=== PATIENT | male | born 1995 | race Caucasian/White ===

== ENCOUNTER 2017-02-06 14:17 | Emergency (ER) | payer BC ==
[~2017-02-06] VITALS: Ht 180.3 cm; Wt 118.0 kg
[2017-02-06 14:20] VITALS: TEMP 36.5; Ht 180.3 cm; Wt 118.0 kg
[2017-02-06] MEDS ORDERED: XYLOCAINE 1%/SOD BICARB 20 ML VIAL INFIL ONE (14:42)
[2017-02-06] MEDS ORDERED: BUPIVACAINE 0.5 % 5 MG/1 ML MPF 30ML VIAL INFIL STA (15:01)
--- NOTE | 2017-02-06 15:21 | EMERGENCY ROOM VISIT NOTE ---
ED Visit Note First contact with patient: 14:47 Chief Complaint: "Cut finger and half". History of Present Illness: This patient is a 21-year-old male who presents to the Emergency Department via private vehicle for evaluation of their left index finger laceration. Patient sustained the laceration while attending to install a brake controller or in his truck. This occurred at his residence 1 hour prior to arrival. They report a large amount of bleeding initially. They deny any numbness or tingling into the distal extremity. They report no decreased range of motion of the affected digit. Patient rates his current discomfort as a 7/10. Patient's Tetanus status is not currently up-to-date, but he indicates that he is going to [facility] later today to update this. Medications: None Allergies: None reported PMH: No pertinent past medical history SHx: Patient lives locally with family. ROS: All pertinent positive and negative review of systems are appropriately documented in the History of Present Illness. Physical Exam: VITAL SIGNS - Vital signs and nursing notes were reviewed. GENERAL -21-year-old male appearing his stated age who is in no acute distress. Communicates well with provider and answers questions appropriately. SKIN - There is a 2.5 cm long laceration noted on the dorsal aspect of the right second digit. The edges gape apart with traction. No foreign bodies appreciated. Upon further examination there are no deep structures including vessel, tendon, or bony structures appreciated. There is moderate active bleeding noted. MUSCULOSKELETAL - Laceration as described above. +5/5 strength appreciated of the affected digit. Full range of motion of the affected digit. NEUROLOGIC -he is neurovascularly intact in the affected digit. VASCULAR - Capillary refill was brisk. IMAGING: LEFT SECOND FINGER 3 VIEWS CLINICAL HISTORY: Laceration. FINDINGS: 3 views of the left second finger are obtained. No prior studies are available for comparison at the time of dictation. The skeletal structures are well mineralized. No fracture is seen. The second metacarpophalangeal and interphalangeal joints are well-maintained. Laceration and soft tissue swelling is present the level of the proximal interphalangeal joint. No radiodense foreign body is identified. IMPRESSION: Soft tissue injury and edema at the level of the second proximal interphalangeal joint as above. No fracture is seen in the left second finger. Electronically signed by: Santos Howell M.D. 02/06/2017 3:55 PM Dictated Date/Time: 02/06/2017 3:53 PM ED Course: Patient was seen and evaluated by myself. Radiograph was obtained to rule out fracture. Results as above. Risks and benefits of performing primary wound closure versus no repair were discussed with the patient who verbalizes understanding. Verbal consent was obtained prior to performing the procedure. 5 cc of 50/50 ratio 1% buffered lidocaine and 0.5% bupivacaine used to perform a digital block of the affected digit. The wound was cleansed and prepped in the typical sterile fashion utilizing normal saline and Betadine. The wound was sterilely draped. Once proper anesthetization was established, the wound was further examined and demonstrated potential involvement of the joint space, however it was very difficult to visualize this region. The wound was copiously irrigated with normal saline and Betadine. The wound was closed using 5 simple, 5-0 nylon sutures with the wound edges being well approximated. Patient tolerated the procedure well. No complications were met. The wound was cleansed and dressed with a Bacitracin dressing. A metal splint was applied to the finger for comfort due to the potential involvement of the joint, I will have him follow-up with a hand specialist. He was provided the number which he is to call first thing Wednesday. The radiograph does not reveal any bony fragment. I believe that management today via proper closure, antibiotic prophylaxis is best management. Patient educated on worrisome symptoms for return visit to the Emergency Department. Patient discharged to home in good condition. In the evaluation and treatment of this patient, the following differential diagnoses were considered: Finger Fracture, Finger Dislocation, Finger Sprain, Finger Contusion, Jersey Finger, or Mallet Finger. Current/Historical Medications Scheduled Cephalexin Monohydrate (Keflex), 500 MG PO TID Allergies Coded Allergies: No Known Allergies (Unverified , 01/22/15) Vital Signs Date Time Temp Pulse Resp B/P Pulse Ox O2 Delivery O2 Flow Rate FiO2 02/06/17 16:19 63 20 126/64 98 02/06/17 14:20 36.5 65 16 142/81 96 Room Air Medications Administered Medications (Trade) Dose Ordered Sig/Debra Route Start Time Stop Time Status Last Admin Dose Admin Lidocaine HCl (Buffered Lidocaine 1% Inj) 20 ml STK-MED ONCE INFIL 5/27/17 14:42 02/06/17 14:43 DC 02/06/17 14:42 20 ML Departure Information Impression Primary Impression: Laceration Dispostion Home / Self-Care Condition GOOD Prescriptions Cephalexin Monohydrate (Keflex) 500 Mg Cap 500 MG PO TID for 5 Days, #15 CAP Prov: Tanvir Aviles GODWIN Martinez 02/06/17 Referrals No Doctor, Assigned (PCP) Slim Meyer MD Patient Instructions My [facility] Additional Instructions Discharge Instructions: You have received 5 sutures on your left finger. These sutures are NOT dissolvable and WILL need to be removed by a health care provider in 12-14 days. You can return to the Emergency Department or contact your Primary Care Provider to have the sutures removed. Please wear the splint for comfort until the sutures are removed. Proper wound care is essential for adequate wound healing and infection prevention. You can shower and clean the wound with soap and water. Do not scour over the wound, pat dry with a towel. Do not submerse the wound (i.e. bathe or dish wash) until the sutures have been removed. You can use an antibiotic ointment with a dressing over the wound for the next 3-4 days. After this time you may leave the wound dry and open to the air. If crust develops over the wound you can use a Q-tip to apply a 1:1 peroxide:water solution to clean the wound. You've been prescribed Keflex. This is to help prevent infection secondary to your wound. This is 500 mg 3 times a day, which is every 8 hours for 5 days. Because of the location of the wound, it is recommended to follow-up with a hand specialist regarding today's visit. Please call the number provided above. (Dr. Meyer) Please receive her tetanus shot later today as we discussed. Look for signs of infection of the wound including: increased pain, swelling, foul discharge, streaking, or increased temperature. If any of these are noticed you should return to the Emergency Department for further assessment and treatment. As with any laceration you may have received nerve damage to the surrounding tissues. This damage may or may not be permanent. You should keep the area covered with sunscreen for the first 6 months to 1 year when at risk for exposure to help minimize scarring. You can also use scar reducing creams or Vitamin E oil to help minimize scarring. For pain control, you can use the following [id number] medicines (if >12 yo): - Regular strength (325mg/tab) Tylenol (acetaminophen) 2 tabs every 4-6 hours as needed. Do not exceed 12 tablets in a 24 hour period. Avoid taking more than 3 grams (3000 mg) of Tylenol per day. This includes any other sources of acetaminophen you may take on a regular basis. - Regular strength (200 mg/tab) Advil (ibuprofen) 1-2 tabs every 4-6 hours as needed. Do not exceed a dose of 3200 mg per day. Return to the emergency department if your symptoms worsen despite treatment course outlined above. Please return to the emergency department with any new/concerning symptoms.
--- NOTE | 2017-02-06 15:56 | DIAGNOSTIC IMAGING REPORT ---
LEFT SECOND FINGER 3 VIEWS CLINICAL HISTORY: Laceration. FINDINGS: 3 views of the left second finger are obtained. No prior studies are available for comparison at the time of dictation. The skeletal structures are well mineralized. No fracture is seen. The second metacarpophalangeal and interphalangeal joints are well-maintained. Laceration and soft tissue swelling is present the level of the proximal interphalangeal joint. No radiodense foreign body is identified. IMPRESSION: Soft tissue injury and edema at the level of the second proximal interphalangeal joint as above. No fracture is seen in the left second finger. Electronically signed by: Santos Howell M.D. 02/06/2017 3:55 PM Dictated Date/Time: 02/06/2017 3:53 PM
[2017-02-06] MEDS ORDERED: CEPH500C PO (16:14)
[2017-02-06 16:19] VITALS: BP 126/64; PULSE 63; O2SAT 98
== END 2017-02-06 16:29 | disposition home or self-care (01) ==
LOC: C.EDB 14:19 → C.EDD 16:29
DX: S61.211A Laceration without foreign body of left index finger without damage to nail, initial encounter (principal); W26.8XXA Contact with other sharp object(s), not elsewhere classified, initial encounter; Y93.89 Activity, other specified

== ENCOUNTER 2017-09-02 15:48 | Emergency (ER) | payer OTHER, BC ==
[~2017-09-02] VITALS: Ht 175.3 cm; Wt 122.0 kg
[2017-09-02 15:51] VITALS: Ht 175.3 cm; Wt 122.0 kg
[2017-09-02] MEDS ORDERED: OXYCODONE/ACETAMINOPHEN 5-325 TAB PO STA (16:12)
--- NOTE | 2017-09-02 16:58 | DIAGNOSTIC IMAGING REPORT ---
LEFT ELBOW 3 VIEWS HISTORY: Left arm crush injury COMPARISON: None. FINDINGS: There is no fracture or dislocation. Soft tissues are unremarkable. No radiopaque foreign bodies. IMPRESSION: No fractures. Electronically signed by: Bill Owens M.D. 09/02/2017 4:57 PM Dictated Date/Time: 09/02/2017 4:44 PM
--- NOTE | 2017-09-02 17:01 | DIAGNOSTIC IMAGING REPORT ---
L SHOULDER MIN 2 VIEWS ROUTINE CLINICAL HISTORY: 22 years-old Male presenting with Left arm crush injury. TECHNIQUE: Internal rotation, external rotation, Grashey views of the left shoulder were obtained. COMPARISON: Correlation made to chest x-ray from 01/22/2015. FINDINGS: Glenohumeral and acromioclavicular joints congruent. No degenerative change. No acute fracture or malalignment. No radiographic soft tissue abnormality. Visualized portion of the left lung clear. IMPRESSION: No acute osseous injury of the left shoulder. Electronically signed by: Olvin Whittaker M.D. 09/02/2017 4:59 PM Dictated Date/Time: 09/02/2017 4:59 PM
[2017-09-02] MEDS ORDERED: SODIUM CHLORIDE 0.9% 1000ML 1,000 ML IV ONE (17:30)
--- NOTE | 2017-09-02 17:35 | DIAGNOSTIC IMAGING REPORT ---
L FOREARM 2 VIEWS ROUTINE CLINICAL HISTORY: 22 years-old Male presenting with Left arm crush injury. TECHNIQUE: Frontal and lateral views of the left forearm are obtained. COMPARISON: None. FINDINGS: Elbow joint and proximal and distal radial ulnar joints congruent. No acute fracture or malalignment. No radiographic soft tissue abnormality. IMPRESSION: No acute osseous injury of the left forearm. Electronically signed by: Olvin Whittaker M.D. 09/02/2017 5:33 PM Dictated Date/Time: 09/02/2017 5:33 PM
[2017-09-02 17:46] LABS: BASO % 0.2 %; BASO ABS # 0.02 K/uL (0-0.2); COMPLETE YES; EOS % 0.7 %; HEMATOCRIT 41.8 % (42-52); IG% 0.2 %; LYMPH % 18.6 %; LYMPH ABS # 1.86 K/uL (1.2-3.4); MEAN CELL VOLUME 86.7 fL (80-100); MEAN CORPUSCULAR HEMOGLOBIN 30.3 pg (25-34); MEAN CORPUSCULAR HGB CONC 34.9 g/dl (32-36); MEAN PLATELET VOLUME 9.6 fL (7.4-10.4); MONO % 7.1 %; NEUT % 73.2 %; PLATELET COUNT 207 K/uL (130-400); RED BLOOD COUNT 4.82 M/uL (4.7-6.1)
[2017-09-02 18:06] LABS: BUN/CREATININE RATIO 15.3 (10-20); CALCIUM 8.7 mg/dl (8.5-10.1); CREATININE 1.06 mg/dl (0.60-1.40)
[2017-09-02 18:08] LABS: ALB/GLOB RATIO 1.3 (0.9-2)
[2017-09-02] MEDS ORDERED: OXYCODONE IR HOME PACK PO ONE (18:30)
[2017-09-02] MEDS ORDERED: OXYC1TAB3 PO (18:33)
[2017-09-02 18:56] VITALS: BP 156/91; PULSE 85; TEMP 36.7; O2SAT 98
--- NOTE | 2017-09-02 22:27 | EMERGENCY ROOM VISIT NOTE ---
History First contact with patient: 15:54 Chief Complaint: ARM PAIN Stated Complaint: LT ARM SMASHED- CONCRETE & SKID STEER BUCKET-WC History of Present Illness The patient is a 22 year old male who presents to the Emergency Room with complaints of crush injury to his left arm that occurred about 30 minutes prior to arrival. The patient was at work and states that his arm got caught between a 1 ton block of concrete and the bucket of a skid steer. The skid steer was lowering the concrete, and the patient's arm was entrapped for roughly 10 seconds. The patient does not have numbness or paresthesias. There is no significant lacerations or abrasions. Patient is able to move the arm at the shoulder and wrist, but has difficulty at the elbow. He has not had similar symptoms like this in the past. He has not taken anything [id number] for his pain which she currently rates a 9/10. Review of Systems More than 10 systems were reviewed and otherwise negative with the exception of history of present illness. Past Medical/Surgical History No chronic medical disease Family History No pertinent family history Social History Smoking Status: Never Smoker Marital Status: single Housing Status: lives with family Occupation Status: student Current/Historical Medications Scheduled Oxycodone Immediate Rel Tab (Roxicodone Ir), 1-2 TAB PO Q6 Physical Exam Vital Signs Date Time Temp Pulse Resp B/P (MAP) Pulse Ox O2 Delivery O2 Flow Rate FiO2 09/02/17 18:56 36.7 85 16 156/91 98 09/02/17 15:51 36.7 85 16 156/91 98 Physical Exam VITALS: Vitals are noted on the nurse's note and reviewed by myself. Vital signs stable. GENERAL: Well-developed, well-nourished, white male, who is in no acute distress and resting comfortably. Patient is cooperative with the examination. HEAD: Normocephalic atraumatic. NECK: Supple without nuchal rigidity. No lymphadenopathy. No thyromegaly. Cervical spine is nontender. HEART: Regular rate and rhythm without murmurs gallops or rubs. LUNGS: Clear to auscultation bilaterally without wheezes, rales or rhonchi. No retractions or accessory muscle use. MUSCULOSKELETAL: Mild edema is appreciated around the left elbow. The compartments appear soft with minimal tenderness. The patient is able to flex and extend at the left elbow. He does have increased tenderness with supination. Neurovascular status is intact the distal hand. Ct Tech strength is 5 /5. He is able to touch his thumb to his fingers. There is mild palpable tenderness along the proximal medial humerus. No other significant injury noted. NEURO: Patient was alert and oriented to person place and time. CN II through XII grossly intact. Medical Decision & Procedures ER Provider Diagnostic Interpretation: L SHOULDER MIN 2 VIEWS ROUTINE CLINICAL HISTORY: 22 years-old Male presenting with Left arm crush injury. TECHNIQUE: Internal rotation, external rotation, Grashey views of the left shoulder were obtained. COMPARISON: Correlation made to chest x-ray from 01/22/2015. FINDINGS: Glenohumeral and acromioclavicular joints congruent. No degenerative change. No acute fracture or malalignment. No radiographic soft tissue abnormality. Visualized portion of the left lung clear. IMPRESSION: No acute osseous injury of the left shoulder. L FOREARM 2 VIEWS ROUTINE CLINICAL HISTORY: 22 years-old Male presenting with Left arm crush injury. TECHNIQUE: Frontal and lateral views of the left forearm are obtained. COMPARISON: None. FINDINGS: Elbow joint and proximal and distal radial ulnar joints congruent. No acute fracture or malalignment. No radiographic soft tissue abnormality. IMPRESSION: No acute osseous injury of the left forearm. LEFT ELBOW 3 VIEWS HISTORY: Left arm crush injury COMPARISON: None. FINDINGS: There is no fracture or dislocation. Soft tissues are unremarkable. No radiopaque foreign bodies. IMPRESSION: No fractures. Laboratory Results 09/02/17 17:25 Red Blood Count 4.82, Mean Corpuscular Volume 86.7, Mean Corpuscular Hemoglobin 30.3, Mean Corpuscular Hemoglobin Concent 34.9, Mean Platelet Volume 9.6, Neutrophils (%) (Auto) 73.2, Lymphocytes (%) (Auto) 18.6, Monocytes (%) (Auto) 7.1, Eosinophils (%) (Auto) 0.7, Basophils (%) (Auto) 0.2, Neutrophils # (Auto) 7.32, Lymphocytes # (Auto) 1.86, Monocytes # (Auto) 0.71, Eosinophils # (Auto) 0.07, Basophils # (Auto) 0.02 09/02/17 17:25 Test 09/02/17 17:25 White Blood Count 10.00 K/uL (4.8-10.8) Red Blood Count 4.82 M/uL (4.7-6.1) Hemoglobin 14.6 g/dL (14.0-18.0) Hematocrit 41.8 % (42-52) Mean Corpuscular Volume 86.7 fL (80-100) Mean Corpuscular Hemoglobin 30.3 pg (25-34) Mean Corpuscular Hemoglobin Concent 34.9 g/dl (32-36) Platelet Count 207 K/uL (130-400) Mean Platelet Volume 9.6 fL (7.4-10.4) Neutrophils (%) (Auto) 73.2 % Lymphocytes (%) (Auto) 18.6 % Monocytes (%) (Auto) 7.1 % Eosinophils (%) (Auto) 0.7 % Basophils (%) (Auto) 0.2 % Neutrophils # (Auto) 7.32 K/uL (1.4-6.5) Lymphocytes # (Auto) 1.86 K/uL (1.2-3.4) Monocytes # (Auto) 0.71 K/uL (0.11-0.59) Eosinophils # (Auto) 0.07 K/uL (0-0.5) Basophils # (Auto) 0.02 K/uL (0-0.2) RDW Standard Deviation 39.9 fL (36.4-46.3) RDW Coefficient of Variation 12.5 % (11.5-14.5) Immature Granulocyte % (Auto) 0.2 % Immature Granulocyte # (Auto) 0.02 K/uL (0.00-0.02) Anion Gap 4.0 mmol/L (3-11) Est Creatinine Clear Calc Drug Dose 141.1 ml/min Estimated GFR () 114.9 Estimated GFR (Non- 99.1 BUN/Creatinine Ratio 15.3 (10-20) Calcium Level 8.7 mg/dl (8.5-10.1) Total Bilirubin 0.3 mg/dl (0.2-1) Aspartate Amino Transf (AST/SGOT) 20 U/L (15-37) Alanine Aminotransferase (ALT/SGPT) 33 U/L (12-78) Alkaline Phosphatase 87 U/L (45-117) Total Creatine Kinase 382 U/L (39-308) Total Protein 7.5 gm/dl (6.4-8.2) Albumin 4.2 gm/dl (3.4-5.0) Globulin 3.3 gm/dl (2.5-4.0) Albumin/Globulin Ratio 1.3 (0.9-2) Medications Administered Medications (Trade) Dose Ordered Sig/Debra Route Start Time Stop Time Status Last Admin Dose Admin Oxycodone/ Acetaminophen (Percocet 5-325mg Tab) 2 tab NOW STAT PO 09/02/17 16:12 09/02/17 16:13 DC 09/02/17 16:23 2 TAB Sodium Chloride 1,000 ml @ 999 mls/hr Q1H1M ONCE IV 09/02/17 17:30 09/02/17 18:30 DC 09/02/17 17:35 999 MLS/HR Oxycodone HCl (Roxicodone Immediate Rel 5MG Home Pack) 1 homepack UD ONCE PO 09/02/17 18:30 09/02/17 18:31 DC 09/02/17 18:40 1 HOMEPACK ED Course Physical exam and history were performed. Nursing notes, EMR, and Medication List were personally reviewed. Patient appears to have suffered a crush injury to the left arm while at work today. On examination the patient is with edema and tenderness. X-rays of the left shoulder, left elbow, and left forearm were performed. Blood work was obtained. The patient was given Percocet here in the department for comfort. The patient's blood work is as above and was reviewed. He does not have a significantly elevated white blood cell count, gross anemia, bandemia, or significant electrolyte imbalance. His CK level is very minimally elevated. X- rays do not show evidence of acute fracture. On reevaluation the patient felt much better, I did discuss the case with my attending physician, Dr. Velasco, who also evaluated the patient. We feel the patient is stable for discharge home. He will be placed in an arm sling and given a course of pain medication. I did have a lengthy discussion with patient about monitoring for compartment syndrome. The patient understands that he is to return back to the ER with any new, worsening, or concerning symptoms. He was discharged home under the care of a female senior administrative services officer who is acting as the entry level truck driver today. The chart was completed utilizing [employer] Voice Recognition Software. Grammatical errors, random word insertions, pronoun errors, and incomplete sentences are an occasional consequence of this system due to software limitations, ambient noise, and hardware issues. Any formal questions or concerns about the content, text, or information contained within the body of this dictation should be directly addressed to the provider for clarification. . Medical Decision Differential diagnosis includes, but is not limited to: Sprain, strain, fracture , dislocation, subluxation, contusion, compartment syndrome, and others Impression Primary Impression: Crushing injury of left arm Departure Information Dispostion Home / Self-Care Condition GOOD Prescriptions Oxycodone Immediate Rel Tab (ROXICODONE IR) 5 Mg Tab 1-2 TAB PO Q6 for Pain, #20 TAB For initial therapy Prov: Huseyin Venegas PA-C 09/02/17 Referrals Olvin Granados M.D. Forms HOME CARE DOCUMENTATION FORM, IMPORTANT VISIT INFORMATION Patient Instructions My [facility], ED Compartment Syndrome At Risk For Additional Instructions You were seen and evaluated today on an emergency basis only. This is not a substitute for, or an effort to provide, complete comprehensive medical care. It is not possible to recognize and treat all injuries or illnesses in a single emergency department visit. For this reason it is recommended that you followup with your Worker's Compensation provider for ongoing care and evaluation. For baseline pain relief you may alternate ibuprofen and acetaminophen every 4 hours for pain control. Take 600 mg ibuprofen (Advil) and then 4 hours later take 1000 mg acetaminophen (Tylenol). Do not take more than 3000 mg acetaminophen in a single day. Oxycodone (OxyIR) 5mg: Take ONE or TWO pills every SIX hours for breakthrough pain. Avoid alcohol, operating machinery or dangerous equipment, working on ladders or roofs, DRIVING, or situations where being under the influence may be dangerous. It is recommended to use an hxir-[id number]-[id number] stool softener such as Colace, 100mg twice daily while taking this medication to avoid constipation. Wear your arm sling for comfort. Do not use your left arm until cleared by Workmen's Compensation. You are welcome to return to the emergency department anytime with new, worsening, or concerning symptoms.
== END 2017-09-02 18:57 | disposition home or self-care (01) ==
LOC: C.EDB 15:50 → C.EDD 18:57
DX: S49.82XA Other specified injuries of left shoulder and upper arm, initial encounter (principal); W23.0XXA Caught, crushed, jammed, or pinched between moving objects, initial encounter; Y93.89 Activity, other specified; Y92.89 Other specified places as the place of occurrence of the external cause; Y99.0 Civilian activity done for income or pay